=== PATIENT | male | born 1960 | race Caucasian/White ===

== ENCOUNTER 2017-08-17 11:40 | Emergency (ER) | payer OTHER ==
[2017-08-17] MEDS ORDERED: Sodium Chloride 0.9% 2.5 ML Syringe FLUSH PRN ×2 (11:51)
[2017-08-17] MEDS ORDERED: Sodium Chloride 0.9% 10 ML Syringe FLUSH PRN ×2 (11:51)
[2017-08-17] MEDS ORDERED: Sodium Chloride 0.9% 1,000 ML IV ONE (11:52)
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
[2017-08-17] MEDS ORDERED: Morphine 2 MG/ML Syringe IVPUSH ONE (12:22)
[2017-08-17] MEDS ORDERED: Ondansetron 4 MG/2 ML SDV IVPUSH ONE (12:22)
[2017-08-17 12:27] LABS: CHLORIDE,CL 104 mmol/L (98-110); SODIUM,NA 139 mmol/L (136-146)
[2017-08-17] MEDS ORDERED: Iopamidol 755 MG/ML 500 ML Multipack Bottle IVPUSH STA (12:30)
--- NOTE | 2017-08-17 12:32 | CT ---
EXAMINATION: Non contrast CT head. Coronal and sagittal reformats. HISTORY: Pain FINDINGS: No evidence of intra or extra axial hemorrhage, mass, midline shift, hydrocephalus or edema. No hypoattenuation changes in the major vascular territories to suggest acute infarct. No abnormal intracranial calcifications are detected. No evidence of substantial vascular calcificat ions. Small mucous retention cyst noted within the inferior left maxillary sinus. Orbits and globes are sym metric. Early degenerative changes noted within the left temporomandibular joint. The sella appears mildly expanded however mostly empty. Calvarium is intact. No evidence of skull fracture. IMPRESSION: No acute intracranial findings.
--- NOTE | 2017-08-17 12:36 | CT ---
EXAMINATION: CT cervical spine HISTORY: Pain COMPARISON: None TECHNIQUE: Axial CT images obtained through the cervical spine without contrast. Coronal and sagittal reconstructions obtained. FINDINGS: The cervical spinal alignment is normal. The vertebral body heights appear maintained. No f racture or acute osseous abnormality is noted. There is a small well-corticated ossific density anter ior to the superior facet of C4, degenerative versus an old injury. Mild degenerative changes noted a t C1-C2. Small osteophyte disc complex at C5-C6. The prevertebral soft tissues appear normal. IMPRESSION: 1. No acute cervical spinal abnormality identified. 2. Mild degenerative changes noted.
--- NOTE | 2017-08-17 12:45 | CT ---
CT of the chest, abdomen and pelvis with contrast. HISTORY: Shortness of breath TECHNIQUE: Axial CT images were obtained of the chest, abdomen and pelvis following administration of 100 mL of Isovue-370 in the left antecubital fossa without complication. Coronal and sagittal recons tructions obtained. FINDINGS: Chest: The lungs are clear without focal consolidation. No pleural effusion or pneumothorax. The hear t is normal in size without pericardial effusion. Thoracic aorta is normal in caliber. The main and c entral pulmonary arteries are patent. No mediastinal or hilar lymphadenopathy. No axillary lymphadeno mat. The central airways are clear. Abdomen: There is a tiny hiatal hernia. The liver, spleen, and pancreas appear normal. There is a tin y 5 mm left adrenal nodule. No bulky retroperitoneal lymphadenopathy or abdominal ascites. The gallbl adder is normal. The kidneys enhance and function symmetrically without evidence of obstructive uropa thy. Renal cortical cysts are noted. Pelvis: The large and small bowel are normal in caliber without evidence of obstruction. No focal per icolonic or pericecal inflammation or stranding. The urinary bladder is normal. No pelvic lymphadenop athy or free pelvic fluid. Acute appearing left third, fourth, and fifth rib fractures noted. Otherwise bone rib fractures are n oted within the lower left ribs. There is grade 2 anterolisthesis of L5 on S1 with bilateral chronic spondylolysis. IMPRESSION: 1. Acute nondisplaced left third through fifth lateral rib fractures. 2. No underlying pneumothorax or pleural effusion. 3. Otherwise no acute findings within the chest, abdomen, or pelvis. 4. 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
[2017-08-17 14:27] VITALS: BP 175/101
== END 2017-08-17 14:21 | disposition home or self-care (01) ==
LOC: MW.ED 11:40
DX: S22.42XA Multiple fractures of ribs, left side, initial encounter for closed fracture (principal); V43.52XA Car driver injured in collision with other type car in traffic accident, initial encounter; W22.19XA Striking against or struck by other automobile airbag, initial encounter
CPT/HCPCS: 36415; 70450; 71260; 72125; 74177; 80053; 83690; 85025; 96360; 99285; J7040; Q9967; 99284